=== PATIENT | male | born 1940 | race Asian ===

== ENCOUNTER 2016-07-25 12:50 | Inpatient (IN) | payer MEDICARE, OTHER ==
[~2016-07-25] VITALS: Ht 165.1 cm; Wt 50.2 kg
[~2016-07-25 12:50] MED LIST: AMIO200T44 PO; APIX5TAB PO; RANI150T7 PO
[2016-07-25] MEDS ORDERED: DILTIAZEM HCL 5 MG/ML 5 ML VIAL IVP ONE ×2 (13:30→14:30)
[2016-07-25] MEDS ORDERED: NITROGLYCERIN 2% (1 GM=INCH) PACKET TP ONE (13:30)
[2016-07-25] MEDS ORDERED: FUROSEMIDE 40 MG/4 ML VIAL IVP ONE (13:30)
[2016-07-25 13:45] LABS: BASOPHILS % (AUTO) 1.3 % (0.0-2.0); EOSINOPHILS % (AUTO) 1.3 % (1.0-6.0); HEMATOCRIT 48.9 % (41-53); HEMOGLOBIN 15.3 g/dL (13.5-17.5); LYMPHOCYTES # (AUTO) 1.7 K/uL (1.0-4.8); LYMPHOCYTES % (AUTO) 24.4 % (22.0-44.0); MEAN CORPUSCULAR HEMOGLOBIN 28.9 pg (26.0-34.0); MEAN CORPUSCULAR HGB CONC 31.3 G/dL (31.0-37.0); MEAN CORPUSCULAR VOLUME 92 fL (80-100); MONOCYTES # (AUTO) 0.5 K/uL (0.1-1.0); MONOCYTES % (AUTO) 7.4 % (2.0-9.0); NEUTROPHILS # (AUTO) 4.6 K/uL (1.8-7.7); NEUTROPHILS % (AUTO) 65.6 % (40.0-70.0); PLATELET COUNT (AUTO) 41 K/uL (150-450); RED CELL DISTRIBUTION WIDTH 15.9 % (11.5-14.5); WHITE BLOOD COUNT (AUTO) 7.1 K/uL (4.5-11.0)
[2016-07-25 13:54] LABS: ANION GAP 12 mmol/L (8-16); CALCIUM, TOTAL 8.8 mg/dL (8.8-10.5); CARBON DIOXIDE 23 mmol/L (22-29); CHLORIDE 106 mmol/L (98-107); CREATININE 1.14 mg/dL (0.60-1.30); GLOMERULAR FILTR. RATE CALC > 60 mL/min (>60); POTASSIUM 4.7 mmol/L (3.5-5.1); SODIUM SERUM 141 mmol/L (136-145); UREA NITROGEN, BLOOD 23 mg/dL (7-18)
[2016-07-25 13:58] LABS: INR 1.1 (0.9-1.1); PROTHROMBIN TIME 11.9 SEC (9.4-11.6)
[2016-07-25 14:08] LABS: B-TYPE NATRIURETIC PEPTIDE 1290 pg/mL (0-100)
[2016-07-25 14:16] LABS: ALANINE AMINOTRANSFERASE 42 U/L (12-78); ALBUMIN 3.4 g/dL (3.4-5.0); ASPARTATE AMINOTRANSFERASE 37 U/L (15-37); BILIRUBIN,TOTAL 2.3 mg/dL (0.1-1.0); CREATINE KINASE MB 3.9 ng/mL (0-5); CREATINE KINASE, TOTAL 161 U/L (39-308); TOTAL PROTEIN, SERUM 7.1 g/dL (6.4-8.2)
[2016-07-25 15:09] LABS: APPEARANCE,URINE CLEAR (CLEAR); GLUCOSE, URINE (UA) NEGATIVE (NEGATIVE); KETONES,URINE NEGATIVE (NEGATIVE); LEUKOCYTE ESTERASE ,URINE NEGATIVE (NEGATIVE); OCCULT BLOOD,URINE NEGATIVE (NEGATIVE); PROTEIN,URINE NEGATIVE (NEGATIVE)
[2016-07-25 15:12] LABS: ADD UA MICROSCOPIC NO
[2016-07-25] MEDS ORDERED: BISACODYL 10 MG RECTAL RECTAL SUPPOSITORY PR PRN (18:45)
[2016-07-25] MEDS ORDERED: MAGNESIUM HYDROXIDE SUSPENSION 30 ML UDCUP PO PRN (18:45)
[2016-07-25] MEDS ORDERED: ONDANSETRON HCL 4 MG/2 ML VIAL IVP PRN (18:45)
[2016-07-25] MEDS ORDERED: AMIODARONE HCL 150 MG in DEXTROSE 5%-WATER 97 ML IV ONE (18:50)
[2016-07-25] MEDS ORDERED: DIGOXIN 250 MCG/ML 2 ML AMP IVP ONE (19:00)
[2016-07-25] MEDS ORDERED: AMIODARONE HCL 360 MG in DEXTROSE 5%-WATER 242.8 ML IV ONE (19:00)
[2016-07-25 19:25] LABS: THYROID STIMULATING HORMONE 2.58 uIU/mL (0.36-3.74)
[2016-07-25] MEDS: DOCUSATE SODIUM 100 MG CAPSULE PO SCH (21:20)
[2016-07-26] MEDS ORDERED: AMIODARONE HCL 540 MG in DEXTROSE 5%-WATER 239.2 ML IV ONE (01:00)
[2016-07-26 01:07] VITALS: BP 118/93
[2016-07-26 05:05] VITALS: BP 122/92
[2016-07-26 07:39] VITALS: BP 143/99
[2016-07-26] MEDS: DOCUSATE SODIUM 100 MG CAPSULE PO SCH ×2 (08:47→21:17)
[2016-07-26] MEDS: PANTOPRAZOLE SODIUM 40 MG DR TABLET PO SCH (08:47)
[2016-07-26 11:27] VITALS: BP 113/80
[2016-07-26 17:52] VITALS: BP 122/74
[2016-07-26] MEDS ORDERED: AMIODARONE HCL 750 MG in DEXTROSE 5%-WATER 485 ML IV SCH (19:00)
[2016-07-26 19:55] VITALS: BP 118/90
[2016-07-26] MEDS: AMIODARONE HCL 200 MG TABLET PO SCH ×2 (21:16→21:18)
[2016-07-26] MEDS: ZOLPIDEM TARTRATE 5 MG TABLET PO PRN (21:16)
[2016-07-26] MEDS: APIXABAN 5 MG TABLET PO SCH ×2 (21:16→21:18)
[2016-07-26] MEDS: FUROSEMIDE 20 MG/2 ML VIAL IVP SCH (21:17)
[2016-07-27 00:06] VITALS: BP 110/79
[2016-07-27 05:17] VITALS: BP 123/75
[2016-07-27 07:39] VITALS: BP 132/83
[2016-07-27] MEDS: AMIODARONE HCL 200 MG TABLET PO SCH ×3 (07:58→21:04)
[2016-07-27] MEDS: APIXABAN 5 MG TABLET PO SCH (07:59)
[2016-07-27] MEDS: DOCUSATE SODIUM 100 MG CAPSULE PO SCH ×2 (08:00→21:04)
[2016-07-27] MEDS: PANTOPRAZOLE SODIUM 40 MG DR TABLET PO SCH (08:00)
[2016-07-27] MEDS ORDERED: DENTURE ADHESIVE 68 GM CREAM DT PRN (08:00)
[2016-07-27] MEDS: FUROSEMIDE 20 MG/2 ML VIAL IVP SCH ×2 (08:07→21:04)
[2016-07-27 11:30] VITALS: BP 116/73
[2016-07-27] MEDS: DIGOXIN 125 MCG TABLET PO SCH (13:00)
[2016-07-27] MEDS ORDERED: DIGOXIN 250 MCG/ML 2 ML AMP IVP ONE (13:45)
[2016-07-27 15:22] VITALS: BP 127/81
[2016-07-27 19:52] VITALS: BP 103/64
[2016-07-27] MEDS: ZOLPIDEM TARTRATE 5 MG TABLET PO PRN (21:04)
[2016-07-28] VITALS (17 sets, daily range): BP systolic 96–164; BP diastolic 49–100
[2016-07-28 06:43] LABS: ALBUMIN 2.5 g/dL (3.4-5.0); BILIRUBIN,TOTAL 1.8 mg/dL (0.1-1.0); CALCIUM, TOTAL 7.6 mg/dL (8.8-10.5); CREATININE 1.28 mg/dL (0.60-1.30); DIGOXIN 0.68 ng/mL (0.90-2.00); TOTAL PROTEIN, SERUM 5.8 g/dL (6.4-8.2)
[2016-07-28 06:58] LABS: BASOPHILS # (AUTO) 0.03 K/uL (0.00-0.20); BASOPHILS % (AUTO) 0.3 % (0.0-2.0); EOSINOPHILS # (AUTO) 0.21 K/uL (0.00-0.70); EOSINOPHILS % (AUTO) 1.89 % (1.0-6.0); HEMATOCRIT 49.3 % (41-53); HEMOGLOBIN 15.8 g/dL (13.5-17.5); LYMPHOCYTES # (AUTO) 1.3 K/uL (1.0-4.8); LYMPHOCYTES % (AUTO) 12.1 % (22.0-44.0); MEAN CORPUSCULAR VOLUME 90 fL (80-100); MONOCYTES # (AUTO) 1.1 K/uL (0.1-1.0); MONOCYTES % (AUTO) 10.3 % (2.0-9.0); NEUTROPHILS # (AUTO) 8.3 K/uL (1.8-7.7); NEUTROPHILS % (AUTO) 75.5 % (40.0-70.0); PLATELET COUNT (AUTO) 224 K/uL (150-450); RED BLOOD CELL COUNT(AUTO) 5.45 MIL/uL (4.50-5.90); RED CELL DISTRIBUTION WIDTH 15.6 % (11.5-14.5)
[2016-07-28] MEDS: AMIODARONE HCL 200 MG TABLET PO SCH ×3 (08:28→21:30)
[2016-07-28] MEDS: DOCUSATE SODIUM 100 MG CAPSULE PO SCH ×2 (08:28→21:29)
[2016-07-28] MEDS: DIGOXIN 125 MCG TABLET PO SCH (08:28)
[2016-07-28] MEDS: FUROSEMIDE 20 MG/2 ML VIAL IVP SCH ×2 (08:28→21:29)
[2016-07-28] MEDS: PANTOPRAZOLE SODIUM 40 MG DR TABLET PO SCH (08:29)
[2016-07-28] MEDS ORDERED: LIDOCAINE HCL/PF 1% 30 ML VIAL ONE (12:49)
[2016-07-28] MEDS ORDERED: HEPARIN SODIUM 1000 UNITS/NS 1,000 ML ONE (12:50)
[2016-07-28] MEDS ORDERED: IOHEXOL 300 MG/ML 150 ML VIAL ONE (12:50)
[2016-07-28] MEDS ORDERED: SODIUM BICARBONATE 50 MEQ/50 ML VIAL ONE (12:50)
[2016-07-28] MEDS ORDERED: VERAPAMIL HCL 2.5 MG/ML 2 ML VIAL ONE (13:23)
[2016-07-28] MEDS ORDERED: NITROGLYCERIN 50 MG/D5% WATER 250 ML ONE (13:23)
[2016-07-28] MEDS ORDERED: HEPARIN SODIUM 2,000 UNITS in HEPARIN SODIUM 1000 UNITS/NS 1,000 ML IARTER ONE (13:38)
[2016-07-28] MEDS ORDERED: SODIUM CHLORIDE 0.9% 500 ML IV ONE (13:38)
[2016-07-28] MEDS ORDERED: VERAPAMIL HCL 2.5 MG/ML 2 ML VIAL IARTER ONE (13:45)
[2016-07-28] MEDS ORDERED: HEPARIN SODIUM,PORCINE 5,000 UNITS/ML VIAL IVP ONE (13:45)
[2016-07-28] MEDS ORDERED: LIDOCAINE 1% 30 ML/SOD BICARB 8.4% 4 ML SQ ONE (13:45)
[2016-07-28] MEDS ORDERED: NITROGLYCERIN/D5W 50 MG/250 ML IV BOTTLE IARTER ONE (13:45)
[2016-07-28] MEDS ORDERED: IOHEXOL 300 MG/ML 150 ML VIAL IARTER ONE (13:45)
[2016-07-28] MEDS ORDERED: IOHEXOL 300 MG/ML 50 ML VIAL ONE ×2 (13:57→14:01)
[2016-07-28] MEDS ORDERED: IOHEXOL 300 MG/ML 100 ML VIAL ONE ×2 (13:57→14:35)
[2016-07-28] MEDS ORDERED: ASPIRIN 81 MG CHEWABLE TABLET ONE (14:14)
[2016-07-28] MEDS ORDERED: TICAGRELOR 90 MG TABLET ONE (14:14)
[2016-07-28] MEDS ORDERED: TICAGRELOR 90 MG TABLET PO ONE (14:30)
[2016-07-28] MEDS ORDERED: IOHEXOL 300 MG/ML 50 ML VIAL IARTER ONE (14:30)
[2016-07-28] MEDS ORDERED: ASPIRIN 81 MG CHEWABLE TABLET PO ONE (14:30)
[2016-07-28] MEDS ORDERED: IOHEXOL 300 MG/ML 100 ML VIAL IARTER ONE (14:30)
[2016-07-28] MEDS ORDERED: 0.9% SODIUM CHLORIDE 10 ML SYRINGE IVP PRN (15:15)
[2016-07-28 19:09] LABS: CREATINE KINASE, TOTAL 72 U/L (39-308)
[2016-07-28] MEDS: CARVEDILOL 3.125 MG TABLET PO SCH (21:29)
[2016-07-28] MEDS: ATORVASTATIN CALCIUM 40 MG TABLET PO SCH (22:51)
[2016-07-28] MEDS: TICAGRELOR 90 MG TABLET PO SCH (22:51)
[2016-07-28] MEDS: LISINOPRIL 5 MG TABLET PO SCH (22:51)
[2016-07-29] VITALS (8 sets, daily range): BP systolic 86–132; BP diastolic 50–87
[2016-07-29 06:19] LABS: ANION GAP 7 mmol/L (8-16); CALCIUM, TOTAL 7.8 mg/dL (8.8-10.5); CARBON DIOXIDE 30 mmol/L (22-29); CHLORIDE 100 mmol/L (98-107); CREATINE KINASE MB 1.3 ng/mL (0-5); CREATINE KINASE, TOTAL 132 U/L (39-308); GLOMERULAR FILTR. RATE CALC 54 mL/min (>60); POTASSIUM 5.2 mmol/L (3.5-5.1); SODIUM SERUM 137 mmol/L (136-145); UREA NITROGEN, BLOOD 20 mg/dL (7-18)
[2016-07-29 06:51] LABS: BASOPHILS % (AUTO) 0.9 % (0.0-2.0); EOSINOPHILS # (AUTO) 0.19 K/uL (0.00-0.70); EOSINOPHILS % (AUTO) 1.62 % (1.0-6.0); HEMATOCRIT 53.8 % (41-53); HEMOGLOBIN 17.1 g/dL (13.5-17.5); LYMPHOCYTES # (AUTO) 1.2 K/uL (1.0-4.8); LYMPHOCYTES % (AUTO) 9.8 % (22.0-44.0); MEAN CORPUSCULAR HEMOGLOBIN 28.8 pg (26.0-34.0); MEAN CORPUSCULAR HGB CONC 31.8 G/dL (31.0-37.0); MEAN CORPUSCULAR VOLUME 90 fL (80-100); MONOCYTES # (AUTO) 1.2 K/uL (0.1-1.0); MONOCYTES % (AUTO) 10.1 % (2.0-9.0); NEUTROPHILS # (AUTO) 9.2 K/uL (1.8-7.7); NEUTROPHILS % (AUTO) 77.6 % (40.0-70.0); PLATELET COUNT (AUTO) 251 K/uL (150-450); RED BLOOD CELL COUNT(AUTO) 5.95 MIL/uL (4.50-5.90); RED CELL DISTRIBUTION WIDTH 15.5 % (11.5-14.5); WHITE BLOOD COUNT (AUTO) 11.8 K/uL (4.5-11.0)
[2016-07-29] MEDS: FUROSEMIDE 20 MG/2 ML VIAL IVP SCH ×2 (08:23→20:49)
[2016-07-29] MEDS: CARVEDILOL 3.125 MG TABLET PO SCH ×2 (08:23→20:48)
[2016-07-29] MEDS: PANTOPRAZOLE SODIUM 40 MG DR TABLET PO SCH (08:23)
[2016-07-29] MEDS: DOCUSATE SODIUM 100 MG CAPSULE PO SCH ×2 (08:24→20:48)
[2016-07-29] MEDS: TICAGRELOR 90 MG TABLET PO SCH ×2 (08:24→20:49)
[2016-07-29] MEDS: ASPIRIN 81 MG CHEWABLE TABLET PO SCH (08:24)
[2016-07-29] MEDS: AMIODARONE HCL 200 MG TABLET PO SCH ×3 (08:24→20:48)
[2016-07-29] MEDS: LISINOPRIL 5 MG TABLET PO SCH (20:48)
[2016-07-29] MEDS: ATORVASTATIN CALCIUM 40 MG TABLET PO SCH (20:50)
[2016-07-30] VITALS (7 sets, daily range): BP systolic 89–133; BP diastolic 40–84
[2016-07-30 05:47] LABS: ALBUMIN 2.6 g/dL (3.4-5.0); BILIRUBIN,TOTAL 1.5 mg/dL (0.1-1.0); CALCIUM, TOTAL 7.7 mg/dL (8.8-10.5); MAGNESIUM 2.2 mg/dL (1.80-2.40); POTASSIUM 3.9 mmol/L (3.5-5.1)
[2016-07-30 05:57] LABS: CREATININE 1.33 mg/dL (0.60-1.30)
[2016-07-30 06:14] LABS: BASOPHILS # (AUTO) 0.05 K/uL (0.00-0.20); BASOPHILS % (AUTO) 0.5 % (0.0-2.0); EOSINOPHILS # (AUTO) 0.14 K/uL (0.00-0.70); EOSINOPHILS % (AUTO) 1.34 % (1.0-6.0); HEMATOCRIT 53.2 % (41-53); HEMOGLOBIN 16.9 g/dL (13.5-17.5); LYMPHOCYTES # (AUTO) 1.2 K/uL (1.0-4.8); LYMPHOCYTES % (AUTO) 10.7 % (22.0-44.0); MEAN CORPUSCULAR HGB CONC 31.8 G/dL (31.0-37.0); MEAN CORPUSCULAR VOLUME 91 fL (80-100); MONOCYTES % (AUTO) 9.1 % (2.0-9.0); NEUTROPHILS # (AUTO) 8.4 K/uL (1.8-7.7); NEUTROPHILS % (AUTO) 78.4 % (40.0-70.0); PLATELET COUNT (AUTO) 259 K/uL (150-450); RED BLOOD CELL COUNT(AUTO) 5.84 MIL/uL (4.50-5.90); RED CELL DISTRIBUTION WIDTH 15.8 % (11.5-14.5); WHITE BLOOD COUNT (AUTO) 10.7 K/uL (4.5-11.0)
[2016-07-30] MEDS: DOCUSATE SODIUM 100 MG CAPSULE PO SCH ×2 (08:23→20:34)
[2016-07-30] MEDS: ASPIRIN 81 MG CHEWABLE TABLET PO SCH (08:23)
[2016-07-30] MEDS: PANTOPRAZOLE SODIUM 40 MG DR TABLET PO SCH (08:23)
[2016-07-30] MEDS: CARVEDILOL 3.125 MG TABLET PO SCH ×2 (08:23→21:00)
[2016-07-30] MEDS: FUROSEMIDE 20 MG/2 ML VIAL IVP SCH ×2 (08:24→20:34)
[2016-07-30] MEDS: AMIODARONE HCL 200 MG TABLET PO SCH ×2 (08:24→21:00)
[2016-07-30] MEDS: TICAGRELOR 90 MG TABLET PO SCH ×2 (08:24→20:34)
[2016-07-30] MEDS: ATORVASTATIN CALCIUM 40 MG TABLET PO SCH (20:33)
[2016-07-30] MEDS: LISINOPRIL 5 MG TABLET PO SCH (21:00)
[2016-07-31 04:51] VITALS: BP 120/60
[2016-07-31 07:36] VITALS: BP 131/69
[2016-07-31] MEDS: FUROSEMIDE 20 MG/2 ML VIAL IVP SCH ×2 (08:13→21:08)
[2016-07-31] MEDS: PANTOPRAZOLE SODIUM 40 MG DR TABLET PO SCH (08:14)
[2016-07-31] MEDS: TICAGRELOR 90 MG TABLET PO SCH ×2 (08:14→21:08)
[2016-07-31] MEDS: DOCUSATE SODIUM 100 MG CAPSULE PO SCH ×2 (08:14→21:08)
[2016-07-31] MEDS: ASPIRIN 81 MG CHEWABLE TABLET PO SCH (08:14)
[2016-07-31] MEDS: CARVEDILOL 3.125 MG TABLET PO SCH ×2 (08:15→21:00)
[2016-07-31] MEDS: AMIODARONE HCL 200 MG TABLET PO SCH ×3 (08:15→21:08)
[2016-07-31 08:16] LABS: BASOPHILS % (AUTO) 0.5 % (0.0-2.0); EOSINOPHILS % (AUTO) 1.5 % (1.0-6.0); HEMATOCRIT 54.6 % (41-53); HEMOGLOBIN 17.2 g/dL (13.5-17.5); MEAN CORPUSCULAR HEMOGLOBIN 28.7 pg (26.0-34.0); MEAN CORPUSCULAR HGB CONC 31.4 G/dL (31.0-37.0); MEAN CORPUSCULAR VOLUME 91 fL (80-100); MONOCYTES # (AUTO) 0.8 K/uL (0.1-1.0); MONOCYTES % (AUTO) 9.6 % (2.0-9.0); NEUTROPHILS # (AUTO) 6.5 K/uL (1.8-7.7); NEUTROPHILS % (AUTO) 76.4 % (40.0-70.0); PLATELET COUNT (AUTO) 272 K/uL (150-450); RED BLOOD CELL COUNT(AUTO) 5.99 MIL/uL (4.50-5.90); RED CELL DISTRIBUTION WIDTH 15.2 % (11.5-14.5); WHITE BLOOD COUNT (AUTO) 8.6 K/uL (4.5-11.0)
[2016-07-31 08:36] LABS: ALANINE AMINOTRANSFERASE 29 U/L (12-78); ALBUMIN 2.8 g/dL (3.4-5.0); ANION GAP 7 mmol/L (8-16); ASPARTATE AMINOTRANSFERASE 24 U/L (15-37); BILIRUBIN,TOTAL 1.3 mg/dL (0.1-1.0); CALCIUM, TOTAL 7.8 mg/dL (8.8-10.5); CARBON DIOXIDE 32 mmol/L (22-29); CHLORIDE 100 mmol/L (98-107); CREATININE 1.16 mg/dL (0.60-1.30); GLOMERULAR FILTR. RATE CALC > 60 mL/min (>60); POTASSIUM 3.6 mmol/L (3.5-5.1); SODIUM SERUM 139 mmol/L (136-145); TOTAL PROTEIN, SERUM 6.7 g/dL (6.4-8.2); UREA NITROGEN, BLOOD 26 mg/dL (7-18)
[2016-07-31 11:15] VITALS: BP 159/61
[2016-07-31 15:35] VITALS: BP 128/63
[2016-07-31 19:54] VITALS: BP 149/71
[2016-07-31] MEDS: ATORVASTATIN CALCIUM 40 MG TABLET PO SCH (21:08)
[2016-07-31] MEDS: LISINOPRIL 5 MG TABLET PO SCH (21:08)
[2016-08-01 00:15] VITALS: BP 110/43
[2016-08-01 04:26] VITALS: BP 107/57
[2016-08-01 07:31] VITALS: BP 143/71
[2016-08-01] MEDS: FUROSEMIDE 20 MG/2 ML VIAL IVP SCH (08:25)
[2016-08-01] MEDS: AMIODARONE HCL 200 MG TABLET PO SCH (08:26)
[2016-08-01] MEDS: CARVEDILOL 3.125 MG TABLET PO SCH (08:26)
[2016-08-01] MEDS: PANTOPRAZOLE SODIUM 40 MG DR TABLET PO SCH (08:26)
[2016-08-01] MEDS: DOCUSATE SODIUM 100 MG CAPSULE PO SCH (08:26)
[2016-08-01] MEDS: TICAGRELOR 90 MG TABLET PO SCH (08:26)
[2016-08-01] MEDS ORDERED: APIXABAN 2.5 MG TABLET PO SCH (09:00)
[2016-08-01 11:40] VITALS: BP 118/63
[2016-08-01] MEDS ORDERED: AMIO200T44 PO (14:41)
[2016-08-01] MEDS ORDERED: SLOWK8 PO (14:44)
[2016-08-01] MEDS ORDERED: APIX2.5T PO (14:46)
[2016-08-01] MEDS ORDERED: CARV3 PO (14:46)
[2016-08-01] MEDS ORDERED: TICA90TA PO (14:46)
[2016-08-01] MEDS ORDERED: ATOR40TA28 PO (14:46)
[2016-08-01] MEDS ORDERED: LISI-660 PO (14:47)
[2016-08-01] MEDS ORDERED: FURO20 PO (14:47)
[2016-08-01] MEDS ORDERED: DSS100 PO (14:47)
[2016-08-01 15:04] VITALS: BP 149/69
== END 2016-08-01 17:25 | disposition home or self-care (01) | DRG 246 ==
LOC: EMS 12:51 → INTOOBSV 07-26 00:05 → OBSVTOIN 07-26 00:05 → 5S 07-26 00:05 → ICU 07-28 15:12 → 5S 07-30 21:20
PROVIDERS: ADMIT Hospitalist; ATTEND Hospitalist
PROC: 4A023N7 Measurement of Cardiac Sampling and Pressure, Left Heart, Percutaneous Approach (ICD-10-PCS; principal; 2016-07-28)
PROC: 027034Z Dilation of Coronary Artery, One Artery with Drug-eluting Intraluminal Device, Percutaneous Approach (ICD-10-PCS; 2016-07-28)
PROC: B211YZZ Fluoroscopy of Multiple Coronary Arteries using Other Contrast (ICD-10-PCS; 2016-07-28)
PROC: B215YZZ Fluoroscopy of Left Heart using Other Contrast (ICD-10-PCS; 2016-07-28)
DX: I25.10 Atherosclerotic heart disease of native coronary artery without angina pectoris (principal); I50.43 Acute on chronic combined systolic (congestive) and diastolic (congestive) heart failure; E78.5 Hyperlipidemia, unspecified; E87.5 Hyperkalemia; J44.9 Chronic obstructive pulmonary disease, unspecified; K21.9 Gastro-esophageal reflux disease without esophagitis; I11.0 Hypertensive heart disease with heart failure; D69.6 Thrombocytopenia, unspecified; I25.5 Ischemic cardiomyopathy; I48.0 Paroxysmal atrial fibrillation; I08.3 Combined rheumatic disorders of mitral, aortic and tricuspid valves; Z79.01 Long term (current) use of anticoagulants; Z87.891 Personal history of nicotine dependence; Z95.5 Presence of coronary angioplasty implant and graft
CPT/HCPCS: 83735; 84439; 84443; 87081; 92920; 92928; 93005; 93306; 96365; 96366; 96375; 96376; 99291; J0282; J1160; J1644; J1940; J3490; J7060; Q9967

== ENCOUNTER → 2016-10-24 | Outpatient (CLI) | payer MEDICARE ==
[~2016-10-24] MED LIST changes: +APIX2.5T PO; -APIX5TAB PO; +ATOR40TA28 PO; +CARV3 PO; +DSS100 PO; +FURO20 PO; +LISI-660 PO; -RANI150T7 PO; +SLOWK8 PO; +TICA90TA PO
== END | disposition home or self-care (01) ==
LOC: RADPV 08:02
PROVIDERS: ATTEND Internal Medicine Cardiovascular Disease
DX: I50.20 Unspecified systolic (congestive) heart failure (principal); I08.3 Combined rheumatic disorders of mitral, aortic and tricuspid valves
CPT/HCPCS: 93306

== ENCOUNTER 2017-05-18 09:59 | Inpatient (IN) | payer MEDICARE ==
[~2017-05-18] VITALS: Ht 162.6 cm; Wt 54.0 kg
[2017-05-18] VITALS (10 sets, daily range): BP systolic 109–150; BP diastolic 44–95
[2017-05-18] MEDS ORDERED: ASPIRIN 81 MG CHEWABLE TABLET PO ONE (10:15)
[2017-05-18] MEDS ORDERED: DILTIAZEM HCL 5 MG/ML 5 ML VIAL IVP ONE ×2 (10:30→23:30)
[2017-05-18 11:08] LABS: BASOPHILS # (AUTO) 0.05 K/uL (0.00-0.20); BASOPHILS % (AUTO) 0.6 % (0.0-2.0); EOSINOPHILS % (AUTO) 0.01 % (1.0-6.0); HEMATOCRIT 44.5 % (41-53); HEMOGLOBIN 14.5 g/dL (13.5-17.5); LYMPHOCYTES # (AUTO) 0.5 K/uL (1.0-4.8); LYMPHOCYTES % (AUTO) 6.3 % (22.0-44.0); MEAN CORPUSCULAR HEMOGLOBIN 29.9 pg (26.0-34.0); MEAN CORPUSCULAR HGB CONC 32.7 G/dL (31.0-37.0); MEAN CORPUSCULAR VOLUME 92 fL (80-100); MONOCYTES # (AUTO) 0.7 K/uL (0.1-1.0); NEUTROPHILS # (AUTO) 6.9 K/uL (1.8-7.7); PLATELET COUNT (AUTO) 194 K/uL (150-450); RED BLOOD CELL COUNT(AUTO) 4.86 MIL/uL (4.50-5.90); RED CELL DISTRIBUTION WIDTH 13.8 % (11.5-14.5)
[2017-05-18 11:18] LABS: ANION GAP 14 mmol/L (8-16); CALCIUM, TOTAL 8.1 mg/dL (8.8-10.5); CARBON DIOXIDE 21 mmol/L (22-29); CHLORIDE 101 mmol/L (98-107); CREATININE 1.49 mg/dL (0.60-1.30); GLOMERULAR FILTR. RATE CALC 46 mL/min (>60); GLUCOSE,RANDOM 199 mg/dL (70-110); POTASSIUM 3.8 mmol/L (3.5-5.1); SODIUM SERUM 136 mmol/L (136-145); UREA NITROGEN, BLOOD 23 mg/dL (7-18)
[2017-05-18 11:36] LABS: INR 1.2 (0.9-1.1); PROTHROMBIN TIME 12.4 SEC (9.4-11.6)
[2017-05-18 11:44] LABS: ALANINE AMINOTRANSFERASE 90 U/L (12-78); ALBUMIN 3.1 g/dL (3.4-5.0); ASPARTATE AMINOTRANSFERASE 117 U/L (15-37); BILIRUBIN,TOTAL 1.5 mg/dL (0.1-1.0); CREATINE KINASE MB 0.9 ng/mL (0-5); CREATINE KINASE, TOTAL 205 U/L (39-308); TOTAL PROTEIN, SERUM 6.6 g/dL (6.4-8.2)
[2017-05-18 11:50] LABS: B-TYPE NATRIURETIC PEPTIDE 805 pg/mL (0-100)
[2017-05-18 12:00] LABS: ALKALINE PHOSPHATASE 86 U/L (46-116)
[2017-05-18] MEDS ORDERED: ACETAMINOPHEN 325 MG TABLET PO PRN ×2 (12:30→13:15)
[2017-05-18] MEDS ORDERED: 0.9% SODIUM CHLORIDE 10 ML SYRINGE IVP PRN (12:30)
[2017-05-18] MEDS ORDERED: ONDANSETRON HCL 4 MG/2 ML VIAL IVP PRN (12:30)
[2017-05-18] MEDS ORDERED: DIGOXIN 250 MCG/ML 2 ML AMP IVP ONE (12:30)
[2017-05-18] MEDS ORDERED: AMIODARONE HCL 200 MG TABLET PO ONE (12:30)
[2017-05-18] MEDS ORDERED: OxyCODONE HCL/ACETAMINOPHEN 5-325 MG TABLET PO PRN (13:15)
[2017-05-18] MEDS ORDERED: BISACODYL 10 MG RECTAL RECTAL SUPPOSITORY PR PRN (13:15)
[2017-05-18] MEDS ORDERED: ALBUTEROL SULFATE 2.5 MG/0.5 ML NEB SOLUTION NEB PRN (13:15)
[2017-05-18] MEDS ORDERED: AMIODARONE HCL 150 MG in DEXTROSE 5%-WATER 97 ML IV ONE (13:30)
[2017-05-18] MEDS ORDERED: AMIODARONE HCL 360 MG in DEXTROSE 5%-WATER 242.8 ML IV ONE (13:30)
[2017-05-18] MEDS: FUROSEMIDE 20 MG/2 ML VIAL IVP SCH (15:02)
[2017-05-18] MEDS: APIXABAN 2.5 MG TABLET PO SCH ×2 (15:03→22:15)
[2017-05-18] MEDS ORDERED: INFLUENZA VIRUS VACCINE QVS 2017-18 (3YR+)/PF 60 MCG/0.5 ML SYRINGE IM ONE (17:15)
[2017-05-18] MEDS ORDERED: AMIODARONE HCL 540 MG in DEXTROSE 5%-WATER 239.2 ML IV ONE (20:00)
[2017-05-18] MEDS ORDERED: AMIODARONE HCL 200 MG TABLET PO SCH (21:00)
[2017-05-18] MEDS: TICAGRELOR 90 MG TABLET PO SCH (22:15)
[2017-05-18] MEDS: DOCUSATE SODIUM 100 MG CAPSULE PO SCH (22:15)
[2017-05-18] MEDS: ATORVASTATIN CALCIUM 20 MG TABLET PO SCH (22:15)
[2017-05-18] MEDS ORDERED: DILTIAZEM HCL 125 MG in DEXTROSE 5%-WATER 100 ML IV PRN (23:15)
[2017-05-19] VITALS (11 sets, daily range): BP systolic 105–129; BP diastolic 50–69
[2017-05-19] MEDS: TICAGRELOR 90 MG TABLET PO SCH ×2 (09:48→20:40)
[2017-05-19] MEDS: APIXABAN 2.5 MG TABLET PO SCH ×2 (09:49→20:40)
[2017-05-19] MEDS: PANTOPRAZOLE SODIUM 40 MG DR TABLET PO SCH (09:49)
[2017-05-19] MEDS: ASPIRIN 81 MG CHEWABLE TABLET PO SCH (09:50)
[2017-05-19] MEDS: DOCUSATE SODIUM 100 MG CAPSULE PO SCH ×2 (09:51→21:00)
[2017-05-19] MEDS: FUROSEMIDE 20 MG/2 ML VIAL IVP SCH (09:51)
[2017-05-19] MEDS ORDERED: AMIODARONE HCL 750 MG in DEXTROSE 5%-WATER 485 ML IV SCH (13:30)
[2017-05-19 17:50] LABS: BASOPHILS % (AUTO) 0.4 % (0.0-2.0); EOSINOPHILS % (AUTO) 0.2 % (1.0-6.0); HEMATOCRIT 53.7 % (41-53); HEMOGLOBIN 17.7 g/dL (13.5-17.5); LYMPHOCYTES # (AUTO) 0.9 K/uL (1.0-4.8); LYMPHOCYTES % (AUTO) 8.7 % (22.0-44.0); MEAN CORPUSCULAR HEMOGLOBIN 30.1 pg (26.0-34.0); MEAN CORPUSCULAR HGB CONC 32.9 G/dL (31.0-37.0); MEAN CORPUSCULAR VOLUME 92 fL (80-100); MONOCYTES % (AUTO) 9.5 % (2.0-9.0); NEUTROPHILS # (AUTO) 8.3 K/uL (1.8-7.7); NEUTROPHILS % (AUTO) 81.2 % (40.0-70.0); PLATELET COUNT (AUTO) 214 K/uL (150-450); RED BLOOD CELL COUNT(AUTO) 5.86 MIL/uL (4.50-5.90); RED CELL DISTRIBUTION WIDTH 13.7 % (11.5-14.5)
[2017-05-19 18:06] LABS: B-TYPE NATRIURETIC PEPTIDE 423 pg/mL (0-100)
[2017-05-19 18:13] LABS: PLATELET MORPHOLOGY COMMENT GIANT PLTS PRESENT
[2017-05-19 18:22] LABS: ALANINE AMINOTRANSFERASE 84 U/L (12-78); ALBUMIN 2.7 g/dL (3.4-5.0); ALKALINE PHOSPHATASE 72 U/L (46-116); ASPARTATE AMINOTRANSFERASE 88 U/L (15-37); BILIRUBIN,TOTAL 1.9 mg/dL (0.1-1.0); CALCIUM, TOTAL 7.9 mg/dL (8.8-10.5); CARBON DIOXIDE 29 mmol/L (22-29); CREATINE KINASE MB 0.8 ng/mL (0-5); CREATINE KINASE, TOTAL 114 U/L (39-308); CREATININE 1.42 mg/dL (0.60-1.30); GLOMERULAR FILTR. RATE CALC 48 mL/min (>60); GLUCOSE,RANDOM 151 mg/dL (70-110); TOTAL PROTEIN, SERUM 6.4 g/dL (6.4-8.2); UREA NITROGEN, BLOOD 23 mg/dL (7-18)
[2017-05-19 18:55] LABS: ANION GAP 7 mmol/L (8-16); CHLORIDE 96 mmol/L (98-107); POTASSIUM 3.4 mmol/L (3.5-5.1); SODIUM SERUM 132 mmol/L (136-145)
[2017-05-19] MEDS: ATORVASTATIN CALCIUM 20 MG TABLET PO SCH (20:40)
[2017-05-20] VITALS (12 sets, daily range): BP systolic 99–148; BP diastolic 55–70
[2017-05-20] MEDS: CefTRIAXone 1 GM/DEXTROSE 50 ML IV SCH (09:27)
[2017-05-20] MEDS: DOCUSATE SODIUM 100 MG CAPSULE PO SCH ×2 (09:46→21:54)
[2017-05-20] MEDS: FUROSEMIDE 20 MG/2 ML VIAL IVP SCH (09:46)
[2017-05-20] MEDS: TICAGRELOR 90 MG TABLET PO SCH ×2 (09:47→21:54)
[2017-05-20] MEDS: APIXABAN 2.5 MG TABLET PO SCH ×2 (09:47→21:54)
[2017-05-20] MEDS: ASPIRIN 81 MG CHEWABLE TABLET PO SCH (09:48)
[2017-05-20] MEDS: PANTOPRAZOLE SODIUM 40 MG DR TABLET PO SCH (09:48)
[2017-05-20 10:29] LABS: BASOPHILS # (AUTO) 0.02 K/uL (0.00-0.20); BASOPHILS % (AUTO) 0.2 % (0.0-2.0); EOSINOPHILS % (AUTO) 0.01 % (1.0-6.0); HEMATOCRIT 51.6 % (41-53); HEMOGLOBIN 16.9 g/dL (13.5-17.5); LYMPHOCYTES # (AUTO) 0.6 K/uL (1.0-4.8); MEAN CORPUSCULAR HEMOGLOBIN 29.5 pg (26.0-34.0); MEAN CORPUSCULAR HGB CONC 32.7 G/dL (31.0-37.0); MEAN CORPUSCULAR VOLUME 90 fL (80-100); MONOCYTES # (AUTO) 0.8 K/uL (0.1-1.0); MONOCYTES % (AUTO) 9.9 % (2.0-9.0); NEUTROPHILS % (AUTO) 82.9 % (40.0-70.0); PLATELET COUNT (AUTO) 221 K/uL (150-450); RED BLOOD CELL COUNT(AUTO) 5.72 MIL/uL (4.50-5.90); RED CELL DISTRIBUTION WIDTH 13.6 % (11.5-14.5)
[2017-05-20] MEDS: ATORVASTATIN CALCIUM 20 MG TABLET PO SCH (21:55)
[2017-05-21] VITALS (7 sets, daily range): BP systolic 99–143; BP diastolic 50–91
[2017-05-21 06:23] LABS: BASOPHILS % (AUTO) 0.3 % (0.0-2.0); EOSINOPHILS % (AUTO) 0.1 % (1.0-6.0); HEMATOCRIT 52.4 % (41-53); HEMOGLOBIN 17.1 g/dL (13.5-17.5); LYMPHOCYTES # (AUTO) 0.9 K/uL (1.0-4.8); LYMPHOCYTES % (AUTO) 10.9 % (22.0-44.0); MEAN CORPUSCULAR HGB CONC 32.6 G/dL (31.0-37.0); MEAN CORPUSCULAR VOLUME 92 fL (80-100); MONOCYTES # (AUTO) 1.2 K/uL (0.1-1.0); MONOCYTES % (AUTO) 13.9 % (2.0-9.0); NEUTROPHILS # (AUTO) 6.2 K/uL (1.8-7.7); NEUTROPHILS % (AUTO) 74.8 % (40.0-70.0); PLATELET COUNT (AUTO) 216 K/uL (150-450); RED BLOOD CELL COUNT(AUTO) 5.69 MIL/uL (4.50-5.90); RED CELL DISTRIBUTION WIDTH 14.2 % (11.5-14.5)
[2017-05-21 06:36] LABS: CALCIUM, TOTAL 8.1 mg/dL (8.8-10.5); CREATININE 1.24 mg/dL (0.60-1.30); POTASSIUM 3.1 mmol/L (3.5-5.1)
[2017-05-21 06:47] LABS: PLATELET MORPHOLOGY COMMENT GIANT PLTS PRESENT
[2017-05-21] MEDS: CefTRIAXone 1 GM/DEXTROSE 50 ML IV SCH (10:32)
[2017-05-21] MEDS: FUROSEMIDE 20 MG/2 ML VIAL IVP SCH (10:33)
[2017-05-21] MEDS: APIXABAN 2.5 MG TABLET PO SCH ×2 (10:33→22:25)
[2017-05-21] MEDS: CARVEDILOL 6.25 MG TABLET PO SCH ×2 (10:34→22:25)
[2017-05-21] MEDS: PANTOPRAZOLE SODIUM 40 MG DR TABLET PO SCH (10:34)
[2017-05-21] MEDS: TICAGRELOR 90 MG TABLET PO SCH ×2 (10:34→22:25)
[2017-05-21] MEDS: DOCUSATE SODIUM 100 MG CAPSULE PO SCH ×2 (10:34→22:25)
[2017-05-21 10:35] LABS: ERYTHROCYTE SEDIMENTATION RATE 5 MM/HR (0-15)
[2017-05-21] MEDS: ASPIRIN 81 MG CHEWABLE TABLET PO SCH (10:51)
[2017-05-21] MEDS ORDERED: POTASSIUM CHLORIDE 20 MEQ ER TABLET PO ONE (11:30)
[2017-05-21] MEDS: DIGOXIN 125 MCG TABLET PO SCH (12:19)
[2017-05-21] MEDS: ATORVASTATIN CALCIUM 20 MG TABLET PO SCH (22:25)
[2017-05-22 04:13] VITALS: BP 115/65
[2017-05-22 07:58] LABS: CALCIUM, TOTAL 8.1 mg/dL (8.8-10.5); CREATININE 1.18 mg/dL (0.60-1.30); POTASSIUM 3.6 mmol/L (3.5-5.1)
[2017-05-22] MEDS: DIGOXIN 125 MCG TABLET PO SCH (08:17)
[2017-05-22] MEDS: TICAGRELOR 90 MG TABLET PO SCH (08:17)
[2017-05-22] MEDS: APIXABAN 2.5 MG TABLET PO SCH (08:18)
[2017-05-22] MEDS: PANTOPRAZOLE SODIUM 40 MG DR TABLET PO SCH (08:18)
[2017-05-22] MEDS: CARVEDILOL 6.25 MG TABLET PO SCH (08:18)
[2017-05-22] MEDS: FUROSEMIDE 20 MG/2 ML VIAL IVP SCH (08:18)
[2017-05-22] MEDS: DOCUSATE SODIUM 100 MG CAPSULE PO SCH (08:18)
[2017-05-22] MEDS: ASPIRIN 81 MG CHEWABLE TABLET PO SCH (08:18)
[2017-05-22 08:21] VITALS: BP 126/55
[2017-05-22] MEDS: CefTRIAXone 1 GM/DEXTROSE 50 ML IV SCH (09:00)
[2017-05-22 12:05] VITALS: BP 123/65
[2017-05-22 12:13] LABS: APPEARANCE,URINE CLEAR (CLEAR); BILIRUBIN,URINE NEGATIVE (NEGATIVE); GLUCOSE, URINE (UA) 500 mg/dL (NEGATIVE); KETONES,URINE NEGATIVE (NEGATIVE); LEUKOCYTE ESTERASE ,URINE NEGATIVE (NEGATIVE); NITRATE,URINE NEGATIVE (NEGATIVE); OCCULT BLOOD,URINE NEGATIVE (NEGATIVE); PROTEIN,URINE TRACE (NEGATIVE); UROBILINOGEN,URINE 0.2 mg/dL (<=1.0)
[2017-05-22 12:32] LABS: RBC,URINE 0-2 /HPF (0-2)
[2017-05-22 12:37] LABS: BACTERIA,URINE None Seen /HPF (None Seen); SQUAMOUS EPITHELIAL CELL,UR Few /LPF (None Seen)
[2017-05-22 12:38] LABS: HYALINE CASTS, URINE 0-2 /LPF (None Seen)
[2017-05-22 12:39] LABS: MUCUS,URINE Moderate LPF (None Seen)
[2017-05-22 16:13] VITALS: BP 119/48
== END 2017-05-22 17:40 | disposition home or self-care (01) | DRG 291 ==
LOC: EMS 10:02 → ICUN 13:07 → 5S 05-21 22:05
PROVIDERS: ADMIT Internal Medicine; ATTEND Internal Medicine
DX: I11.0 Hypertensive heart disease with heart failure (principal); E43 Unspecified severe protein-calorie malnutrition; J44.0 Chronic obstructive pulmonary disease with (acute) lower respiratory infection; I50.43 Acute on chronic combined systolic (congestive) and diastolic (congestive) heart failure; I48.0 Paroxysmal atrial fibrillation; I08.3 Combined rheumatic disorders of mitral, aortic and tricuspid valves; I25.5 Ischemic cardiomyopathy; I25.10 Atherosclerotic heart disease of native coronary artery without angina pectoris; J20.9 Acute bronchitis, unspecified; E78.5 Hyperlipidemia, unspecified; R73.9 Hyperglycemia, unspecified; Z91.14 Patient's other noncompliance with medication regimen; Z79.82 Long term (current) use of aspirin; Z82.49 Family history of ischemic heart disease and other diseases of the circulatory system; Z95.5 Presence of coronary angioplasty implant and graft; Z79.899 Other long term (current) drug therapy; Z68.20 Body mass index [BMI] 20.0-20.9, adult
CPT/HCPCS: 85651; 87040; 87081; 93005; 93306; 96374; 96375; 99291; J0282; J0696; J1160; J1940; J3490; J7060

== ENCOUNTER 2022-03-15 13:13 | Inpatient (IN) | payer MEDICARE, OTHER ==
[~2022-03-15] VITALS: Ht 162.6 cm; Wt 61.7 kg
[~2022-03-15 13:13] MED LIST changes: -AMIO200T44 PO; +AMIO200T68 NG; -APIX2.5T PO; +ATOR40TA28 NG; -ATOR40TA28 PO; +DSS100 NG; -DSS100 PO; -FURO20 PO; -LISI-660 PO; -SLOWK8 PO
[2022-03-15 17:45] VITALS: BP 138/87
[2022-03-15] MEDS ORDERED: BISACODYL 10 MG RECTAL RECTAL SUPPOSITORY PR PRN (18:30)
[2022-03-15] MEDS ORDERED: ONDANSETRON HCL 4 MG TABLET PO PRN (18:30)
[2022-03-15] MEDS ORDERED: MAGNESIUM HYDROXIDE SUSPENSION 30 ML UDCUP PO PRN (18:30)
[2022-03-15] MEDS ORDERED: ACETAMINOPHEN 325 MG TABLET PO PRN (18:30)
[2022-03-15] MEDS ORDERED: SODIUM CHLORIDE 0.9% 250 ML IV ONE (19:26)
[2022-03-15] MEDS: 0.9% SODIUM CHLORIDE 10 ML SYRINGE IVP SCH (20:15)
[2022-03-15 21:00] VITALS: BP 126/71
[2022-03-15] MEDS: CARVEDILOL 25 MG TABLET PO SCH (21:04)
[2022-03-15] MEDS: SENNA 187 MG TABLET PO SCH (21:04)
[2022-03-15] MEDS: ATORVASTATIN CALCIUM 40 MG TABLET PO SCH (21:04)
[2022-03-15] MEDS: AmLODIPine BESYLATE 5 MG TABLET PO SCH (21:04)
[2022-03-15] MEDS: AMIODARONE HCL 200 MG TABLET PO SCH (21:05)
[2022-03-15] MEDS: DOCUSATE SODIUM 100 MG/10 ML LIQUID UDCUP PO SCH (21:05)
[2022-03-15] MEDS: ETHYL ALCOHOL 62% ANTISEPTIC NASAL SANITIZER 0.6 ML AMPUL NASAL SCH (21:05)
[2022-03-15] MEDS: CLINDAMYCIN 600 MG/D5% WATER 50 ML IV SCH (22:26)
[2022-03-15] MEDS: MELATONIN 3 MG TABLET PO PRN (22:33)
[2022-03-16] MEDS: CLINDAMYCIN 600 MG/D5% WATER 50 ML IV SCH ×3 (05:36→21:30)
[2022-03-16 07:09] LABS: BASOPHILS % (AUTO) 0.5 % (0.0-2.0); HEMATOCRIT 47.3 % (41-53); HEMOGLOBIN 15.4 g/dL (13.5-17.5); LYMPHOCYTES # (AUTO) 1.2 K/uL (1.0-4.8); LYMPHOCYTES % (AUTO) 10.9 % (22.0-44.0); MEAN CORPUSCULAR HGB CONC 32.6 G/dL (31.0-37.0); MEAN CORPUSCULAR VOLUME 92 fL (80-100); MONOCYTES # (AUTO) 1.2 K/uL (0.1-1.0); NEUTROPHILS # (AUTO) 8.1 K/uL (1.8-7.7); NEUTROPHILS % (AUTO) 74.6 % (40.0-70.0); PLATELET COUNT (AUTO) 262 K/uL (150-450); RED BLOOD CELL COUNT(AUTO) 5.14 MIL/uL (4.50-5.90); RED CELL DISTRIBUTION WIDTH 13.5 % (11.5-14.5)
[2022-03-16 07:30] VITALS: BP 121/66
[2022-03-16 07:33] LABS: ALBUMIN 2.4 g/dL (3.4-5.0); BILIRUBIN,TOTAL 1.1 mg/dL (0.1-1.0); CALCIUM, TOTAL 8.7 mg/dL (8.8-10.5); CREATININE 1.21 mg/dL (0.60-1.30); TOTAL PROTEIN, SERUM 6.9 g/dL (6.4-8.2)
[2022-03-16] MEDS: ETHYL ALCOHOL 62% ANTISEPTIC NASAL SANITIZER 0.6 ML AMPUL NASAL SCH ×2 (08:17→20:35)
[2022-03-16] MEDS: 0.9% SODIUM CHLORIDE 10 ML SYRINGE IVP SCH ×2 (08:17→20:39)
[2022-03-16] MEDS: PANTOPRAZOLE SODIUM 40 MG/VIAL IVP SCH (08:17)
[2022-03-16] MEDS: DOCUSATE SODIUM 100 MG/10 ML LIQUID UDCUP PO SCH ×2 (08:18→20:47)
[2022-03-16] MEDS: ASPIRIN 81 MG CHEWABLE TABLET PO SCH (08:18)
[2022-03-16] MEDS: AmLODIPine BESYLATE 5 MG TABLET PO SCH ×2 (08:18→20:36)
[2022-03-16] MEDS: AMIODARONE HCL 200 MG TABLET PO SCH ×2 (08:18→20:36)
[2022-03-16] MEDS: CARVEDILOL 25 MG TABLET PO SCH ×2 (08:18→20:36)
[2022-03-16] MEDS ORDERED: DEXTROSE 50%-WATER 25 GM/50 ML SYRINGE IVP PRN (15:00)
[2022-03-16] MEDS: INSULIN LISPRO 100 UNITS/ML SQ PRN ×2 (17:53→21:16)
[2022-03-16 18:16] LABS: GLUCOMETER DEV NAME(LOC) 2WR.2B; GLUCOSE,POINT OF CARE 262 MG/DL (70-110)
[2022-03-16 20:20] VITALS: BP_SYST 106; BP_SYST 113; BP_DIAS 57; BP_DIAS 66
[2022-03-16] MEDS: ATORVASTATIN CALCIUM 40 MG TABLET PO SCH (20:36)
[2022-03-16] MEDS: APIXABAN 2.5 MG TABLET PO SCH (20:36)
[2022-03-16] MEDS: SENNA 187 MG TABLET PO SCH (20:36)
[2022-03-16 21:51] LABS: GLUCOMETER DEV NAME(LOC) 2WR.2B; GLUCOSE,POINT OF CARE 249 MG/DL (70-110)
[2022-03-17] MEDS: CLINDAMYCIN 600 MG/D5% WATER 50 ML IV SCH ×3 (05:09→21:10)
[2022-03-17 07:01] LABS: GLUCOMETER DEV NAME(LOC) 2WR.1C; GLUCOSE,POINT OF CARE 215 MG/DL (70-110)
[2022-03-17] MEDS: INSULIN LISPRO 100 UNITS/ML SQ PRN ×3 (08:06→21:13)
[2022-03-17] MEDS: GLIMEPIRIDE 2 MG TABLET PO SCH (08:11)
[2022-03-17] MEDS: PIOGLITAZONE HCL 30 MG TABLET PO SCH (08:13)
[2022-03-17] MEDS: ETHYL ALCOHOL 62% ANTISEPTIC NASAL SANITIZER 0.6 ML AMPUL NASAL SCH ×2 (08:13→21:06)
[2022-03-17] MEDS: DOCUSATE SODIUM 100 MG CAPSULE PO SCH ×2 (08:14→21:07)
[2022-03-17] MEDS: ASPIRIN 81 MG CHEWABLE TABLET PO SCH (08:14)
[2022-03-17] MEDS: APIXABAN 2.5 MG TABLET PO SCH ×2 (08:15→21:07)
[2022-03-17] MEDS: AMIODARONE HCL 200 MG TABLET PO SCH ×2 (08:15→21:08)
[2022-03-17] MEDS: AmLODIPine BESYLATE 5 MG TABLET PO SCH ×2 (08:15→21:07)
[2022-03-17] MEDS: CARVEDILOL 25 MG TABLET PO SCH ×2 (08:15→21:16)
[2022-03-17] MEDS: 0.9% SODIUM CHLORIDE 10 ML SYRINGE IVP SCH ×2 (08:28→21:06)
[2022-03-17] MEDS: PANTOPRAZOLE SODIUM 40 MG/VIAL IVP SCH (08:28)
[2022-03-17 10:32] VITALS: BP 140/57
[2022-03-17] MEDS: LEVOFLOXACIN 750 MG/D5% WATER 150 ML IV SCH (17:08)
[2022-03-17 18:51] LABS: GLUCOMETER DEV NAME(LOC) 2WR.2B; GLUCOSE,POINT OF CARE 104 MG/DL (70-110)
[2022-03-17 21:05] VITALS: BP 133/78
[2022-03-17] MEDS: ATORVASTATIN CALCIUM 40 MG TABLET PO SCH (21:08)
[2022-03-17] MEDS: SENNA 187 MG TABLET PO SCH (21:08)
[2022-03-17] MEDS: INSULIN GLARGINE,HUM.REC.ANLOG 100 UNITS/ML SQ SCH (21:14)
[2022-03-17 21:37] LABS: GLUCOMETER DEV NAME(LOC) 2WR.1C; GLUCOSE,POINT OF CARE 277 MG/DL (70-110)
[2022-03-17 22:16] LABS: GLUCOMETER DEV NAME(LOC) 2WR.2B; GLUCOSE,POINT OF CARE 204 MG/DL (70-110)
[2022-03-18] MEDS: CLINDAMYCIN 600 MG/D5% WATER 50 ML IV SCH ×3 (06:08→21:03)
[2022-03-18 06:46] LABS: GLUCOMETER DEV NAME(LOC) 2WR.2B; GLUCOSE,POINT OF CARE 99 MG/DL (70-110)
[2022-03-18] MEDS: DOCUSATE SODIUM 100 MG/10 ML LIQUID UDCUP PO SCH ×2 (09:00→09:09)
[2022-03-18] MEDS: PANTOPRAZOLE SODIUM 40 MG/VIAL IVP SCH (09:09)
[2022-03-18] MEDS: AmLODIPine BESYLATE 5 MG TABLET PO SCH ×2 (09:10→21:00)
[2022-03-18] MEDS: AMIODARONE HCL 200 MG TABLET PO SCH ×2 (09:10→21:00)
[2022-03-18] MEDS: ASPIRIN 81 MG CHEWABLE TABLET PO SCH (09:10)
[2022-03-18] MEDS: PIOGLITAZONE HCL 30 MG TABLET PO SCH (09:10)
[2022-03-18] MEDS: GLIMEPIRIDE 2 MG TABLET PO SCH (09:10)
[2022-03-18] MEDS: CARVEDILOL 25 MG TABLET PO SCH ×2 (09:11→21:02)
[2022-03-18] MEDS: APIXABAN 2.5 MG TABLET PO SCH ×2 (09:11→21:01)
[2022-03-18] MEDS: ETHYL ALCOHOL 62% ANTISEPTIC NASAL SANITIZER 0.6 ML AMPUL NASAL SCH ×2 (09:11→20:53)
[2022-03-18] MEDS: 0.9% SODIUM CHLORIDE 10 ML SYRINGE IVP SCH ×2 (09:11→21:03)
[2022-03-18 10:39] VITALS: BP 103/75
[2022-03-18] MEDS ORDERED: SODIUM CHLORIDE 0.9% 500 ML IV ONE (11:25)
[2022-03-18] MEDS: INSULIN LISPRO 100 UNITS/ML SQ PRN ×2 (12:25→21:05)
[2022-03-18 20:21] LABS: GLUCOMETER DEV NAME(LOC) 2WR.2B; GLUCOSE,POINT OF CARE 123 MG/DL (70-110)
[2022-03-18 20:55] VITALS: BP 125/72
[2022-03-18] MEDS: MELATONIN 3 MG TABLET PO PRN (21:01)
[2022-03-18] MEDS: SENNA 187 MG TABLET PO SCH (21:01)
[2022-03-18] MEDS: ATORVASTATIN CALCIUM 40 MG TABLET PO SCH (21:01)
[2022-03-18] MEDS: INSULIN GLARGINE,HUM.REC.ANLOG 100 UNITS/ML SQ SCH (21:04)
[2022-03-18 21:40] LABS: GLUCOMETER DEV NAME(LOC) 2WR.2B; GLUCOSE,POINT OF CARE 155 MG/DL (70-110)
[2022-03-19] MEDS: CLINDAMYCIN 600 MG/D5% WATER 50 ML IV SCH ×3 (05:04→22:27)
[2022-03-19 05:36] LABS: GLUCOMETER DEV NAME(LOC) 2WR.1C; GLUCOSE,POINT OF CARE 253 MG/DL (70-110)
[2022-03-19 06:41] LABS: GLUCOMETER DEV NAME(LOC) 2WR.2B; GLUCOSE,POINT OF CARE 99 MG/DL (70-110)
[2022-03-19 08:10] VITALS: BP 133/70
[2022-03-19] MEDS: CARVEDILOL 25 MG TABLET PO SCH ×2 (08:25→21:12)
[2022-03-19] MEDS: ETHYL ALCOHOL 62% ANTISEPTIC NASAL SANITIZER 0.6 ML AMPUL NASAL SCH ×2 (08:25→22:02)
[2022-03-19] MEDS: DOCUSATE SODIUM 100 MG/10 ML LIQUID UDCUP PO SCH (08:25)
[2022-03-19] MEDS: APIXABAN 2.5 MG TABLET PO SCH ×2 (08:26→21:12)
[2022-03-19] MEDS: AMIODARONE HCL 200 MG TABLET PO SCH ×2 (08:26→21:12)
[2022-03-19] MEDS: ASPIRIN 81 MG CHEWABLE TABLET PO SCH (08:26)
[2022-03-19] MEDS: GLIMEPIRIDE 2 MG TABLET PO SCH (08:27)
[2022-03-19] MEDS: 0.9% SODIUM CHLORIDE 10 ML SYRINGE IVP SCH ×2 (08:27→21:12)
[2022-03-19] MEDS: PIOGLITAZONE HCL 30 MG TABLET PO SCH (08:27)
[2022-03-19] MEDS: PANTOPRAZOLE SODIUM 40 MG/VIAL IVP SCH (08:27)
[2022-03-19] MEDS: AmLODIPine BESYLATE 5 MG TABLET PO SCH ×2 (08:28→21:12)
[2022-03-19] MEDS: INSULIN LISPRO 100 UNITS/ML SQ PRN (12:26)
[2022-03-19 12:41] LABS: GLUCOMETER DEV NAME(LOC) 2WR.2B; GLUCOSE,POINT OF CARE 249 MG/DL (70-110)
[2022-03-19] MEDS: LEVOFLOXACIN 750 MG/D5% WATER 150 ML IV SCH (17:29)
[2022-03-19 19:21] LABS: GLUCOMETER DEV NAME(LOC) 2WR.1C; GLUCOSE,POINT OF CARE 107 MG/DL (70-110)
[2022-03-19 20:00] VITALS: BP 115/56
[2022-03-19] MEDS: ATORVASTATIN CALCIUM 40 MG TABLET PO SCH (21:12)
[2022-03-19] MEDS: SENNA 187 MG TABLET PO SCH (21:13)
[2022-03-19] MEDS: INSULIN GLARGINE,HUM.REC.ANLOG 100 UNITS/ML SQ SCH (22:05)
[2022-03-19 22:36] LABS: GLUCOMETER DEV NAME(LOC) 2WR.1C; GLUCOSE,POINT OF CARE 187 MG/DL (70-110)
[2022-03-20] MEDS ORDERED: SODIUM CHLORIDE 0.9% 250 ML IV ONE (01:36)
[2022-03-20] MEDS: CLINDAMYCIN 600 MG/D5% WATER 50 ML IV SCH ×3 (05:52→20:51)
[2022-03-20 06:41] LABS: GLUCOMETER DEV NAME(LOC) 2WR.1C; GLUCOSE,POINT OF CARE 100 MG/DL (70-110)
[2022-03-20 07:45] VITALS: BP 130/68
[2022-03-20] MEDS: 0.9% SODIUM CHLORIDE 10 ML SYRINGE IVP SCH ×2 (08:08→20:23)
[2022-03-20] MEDS: PANTOPRAZOLE SODIUM 40 MG/VIAL IVP SCH (08:08)
[2022-03-20] MEDS: GLIMEPIRIDE 2 MG TABLET PO SCH (08:08)
[2022-03-20] MEDS: ETHYL ALCOHOL 62% ANTISEPTIC NASAL SANITIZER 0.6 ML AMPUL NASAL SCH ×2 (08:08→20:23)
[2022-03-20] MEDS: PIOGLITAZONE HCL 30 MG TABLET PO SCH (08:09)
[2022-03-20] MEDS: ASPIRIN 81 MG CHEWABLE TABLET PO SCH (08:09)
[2022-03-20] MEDS: AmLODIPine BESYLATE 5 MG TABLET PO SCH ×2 (08:09→20:25)
[2022-03-20] MEDS: DOCUSATE SODIUM 100 MG/10 ML LIQUID UDCUP PO SCH (08:09)
[2022-03-20] MEDS: CARVEDILOL 25 MG TABLET PO SCH ×2 (08:09→20:25)
[2022-03-20] MEDS: APIXABAN 2.5 MG TABLET PO SCH ×2 (08:09→20:25)
[2022-03-20] MEDS: AMIODARONE HCL 200 MG TABLET PO SCH ×2 (08:09→20:26)
[2022-03-20] MEDS: INSULIN LISPRO 100 UNITS/ML SQ PRN ×2 (12:08→17:35)
[2022-03-20 12:21] LABS: GLUCOMETER DEV NAME(LOC) 2WR.1C; GLUCOSE,POINT OF CARE 156 MG/DL (70-110)
[2022-03-20] MEDS: ATORVASTATIN CALCIUM 40 MG TABLET PO SCH (20:25)
[2022-03-20] MEDS: SENNA 187 MG TABLET PO SCH (20:26)
[2022-03-20] MEDS: INSULIN GLARGINE,HUM.REC.ANLOG 100 UNITS/ML SQ SCH (20:35)
[2022-03-20 22:26] VITALS: BP 128/63
[2022-03-20 22:37] LABS: GLUCOMETER DEV NAME(LOC) 2WR.1C; GLUCOSE,POINT OF CARE 140 MG/DL (70-110)
[2022-03-20 22:37] LABS: GLUCOMETER DEV NAME(LOC) 2WR.1C; GLUCOSE,POINT OF CARE 170 MG/DL (70-110)
[2022-03-21] MEDS: CLINDAMYCIN 600 MG/D5% WATER 50 ML IV SCH ×3 (05:09→21:27)
[2022-03-21 07:07] LABS: GLUCOMETER DEV NAME(LOC) 2WR.1C; GLUCOSE,POINT OF CARE 97 MG/DL (70-110)
[2022-03-21 08:00] VITALS: BP 113/61
[2022-03-21] MEDS: DOCUSATE SODIUM 100 MG/10 ML LIQUID UDCUP PO SCH (08:03)
[2022-03-21] MEDS: APIXABAN 2.5 MG TABLET PO SCH ×2 (08:04→20:50)
[2022-03-21] MEDS: GLIMEPIRIDE 2 MG TABLET PO SCH (08:04)
[2022-03-21] MEDS: AMIODARONE HCL 200 MG TABLET PO SCH ×2 (08:04→20:50)
[2022-03-21] MEDS: ASPIRIN 81 MG CHEWABLE TABLET PO SCH (08:04)
[2022-03-21] MEDS: CARVEDILOL 25 MG TABLET PO SCH ×2 (08:04→21:14)
[2022-03-21] MEDS: PIOGLITAZONE HCL 30 MG TABLET PO SCH (08:04)
[2022-03-21] MEDS: AmLODIPine BESYLATE 5 MG TABLET PO SCH ×2 (08:05→20:50)
[2022-03-21] MEDS: ETHYL ALCOHOL 62% ANTISEPTIC NASAL SANITIZER 0.6 ML AMPUL NASAL SCH ×2 (08:05→20:40)
[2022-03-21] MEDS: PANTOPRAZOLE SODIUM 40 MG/VIAL IVP SCH (08:05)
[2022-03-21] MEDS: 0.9% SODIUM CHLORIDE 10 ML SYRINGE IVP SCH ×2 (08:06→20:54)
[2022-03-21] MEDS: INSULIN LISPRO 100 UNITS/ML SQ PRN (12:14)
[2022-03-21] MEDS: LEVOFLOXACIN 750 MG/D5% WATER 150 ML IV SCH (16:26)
[2022-03-21 16:56] LABS: GLUCOMETER DEV NAME(LOC) 2WR.1C; GLUCOSE,POINT OF CARE 208 MG/DL (70-110)
[2022-03-21 17:16] LABS: GLUCOMETER DEV NAME(LOC) 2WR.2B; GLUCOSE,POINT OF CARE 132 MG/DL (70-110)
[2022-03-21 20:00] VITALS: BP 130/80
[2022-03-21] MEDS: SENNA 187 MG TABLET PO SCH (20:41)
[2022-03-21] MEDS: ATORVASTATIN CALCIUM 40 MG TABLET PO SCH (20:50)
[2022-03-21] MEDS: INSULIN GLARGINE,HUM.REC.ANLOG 100 UNITS/ML SQ SCH (20:57)
[2022-03-21 21:06] LABS: GLUCOMETER DEV NAME(LOC) 2WR.1C; GLUCOSE,POINT OF CARE 82 MG/DL (70-110)
[2022-03-22] MEDS: MELATONIN 3 MG TABLET PO PRN (00:42)
[2022-03-22 02:30] VITALS: BP 137/83
[2022-03-22 03:26] LABS: GLUCOMETER DEV NAME(LOC) 2WR.1C; GLUCOSE,POINT OF CARE 112 MG/DL (70-110)
[2022-03-22] MEDS: CLINDAMYCIN 600 MG/D5% WATER 50 ML IV SCH ×3 (05:42→21:59)
[2022-03-22 06:26] LABS: BASOPHILS % (AUTO) 0.5 % (0.0-2.0); EOSINOPHILS % (AUTO) 1.7 % (1.0-6.0); HEMATOCRIT 45.7 % (41-53); HEMOGLOBIN 15.1 g/dL (13.5-17.5); LYMPHOCYTES # (AUTO) 1.3 K/uL (1.0-4.8); LYMPHOCYTES % (AUTO) 8.9 % (22.0-44.0); MEAN CORPUSCULAR HEMOGLOBIN 30.2 pg (26.0-34.0); MEAN CORPUSCULAR HGB CONC 33.1 G/dL (31.0-37.0); MEAN CORPUSCULAR VOLUME 91 fL (80-100); MONOCYTES # (AUTO) 0.8 K/uL (0.1-1.0); MONOCYTES % (AUTO) 5.7 % (2.0-9.0); NEUTROPHILS # (AUTO) 11.8 K/uL (1.8-7.7); NEUTROPHILS % (AUTO) 83.2 % (40.0-70.0); PLATELET COUNT (AUTO) 373 K/uL (150-450); RED CELL DISTRIBUTION WIDTH 13.6 % (11.5-14.5)
[2022-03-22 06:42] LABS: ALBUMIN 2.6 g/dL (3.4-5.0); BILIRUBIN,TOTAL 0.7 mg/dL (0.1-1.0); CALCIUM, TOTAL 8.7 mg/dL (8.8-10.5); CREATININE 1.33 mg/dL (0.60-1.30); POTASSIUM 3.8 mmol/L (3.5-5.1); TOTAL PROTEIN, SERUM 7.1 g/dL (6.4-8.2)
[2022-03-22 07:01] LABS: GLUCOMETER DEV NAME(LOC) 2WR.1C; GLUCOSE,POINT OF CARE 91 MG/DL (70-110)
[2022-03-22 08:00] VITALS: BP 144/73
[2022-03-22] MEDS: 0.9% SODIUM CHLORIDE 10 ML SYRINGE IVP SCH ×2 (08:45→21:00)
[2022-03-22] MEDS: GLIMEPIRIDE 2 MG TABLET PO SCH (08:45)
[2022-03-22] MEDS: PIOGLITAZONE HCL 30 MG TABLET PO SCH (08:46)
[2022-03-22] MEDS: APIXABAN 2.5 MG TABLET PO SCH ×2 (08:46→21:00)
[2022-03-22] MEDS: ASPIRIN 81 MG CHEWABLE TABLET PO SCH (08:46)
[2022-03-22] MEDS: CARVEDILOL 25 MG TABLET PO SCH ×2 (08:46→21:00)
[2022-03-22] MEDS: PANTOPRAZOLE SODIUM 40 MG/VIAL IVP SCH (08:46)
[2022-03-22] MEDS: ETHYL ALCOHOL 62% ANTISEPTIC NASAL SANITIZER 0.6 ML AMPUL NASAL SCH ×2 (08:46→21:45)
[2022-03-22] MEDS: DOCUSATE SODIUM 100 MG/10 ML LIQUID UDCUP PO SCH (08:46)
[2022-03-22] MEDS: AmLODIPine BESYLATE 5 MG TABLET PO SCH ×2 (08:47→21:00)
[2022-03-22] MEDS: AMIODARONE HCL 200 MG TABLET PO SCH ×2 (08:47→21:00)
[2022-03-22 10:11] LABS: APPEARANCE,URINE CLEAR (CLEAR); BILIRUBIN,URINE NEGATIVE (NEGATIVE); GLUCOSE, URINE (UA) 300-500 mg/dL (NEGATIVE); KETONES,URINE NEGATIVE (NEGATIVE); LEUKOCYTE ESTERASE ,URINE NEGATIVE (NEGATIVE); NITRATE,URINE NEGATIVE (NEGATIVE); OCCULT BLOOD,URINE NEGATIVE (NEGATIVE); PH,URINE 7.5 (5.0-8.0); PROTEIN,URINE TRACE mg/dL (NEGATIVE); SPECIFIC GRAVITIY, URINE 1.016 (1.003-1.030); UROBILINOGEN,URINE <=1.0 mg/dL (<=1.0)
[2022-03-22 10:56] LABS: RBC,URINE 0-2 /HPF (0-2); WBC,URINE 0-2 /HPF (0-5)
[2022-03-22 10:57] LABS: BACTERIA,URINE Rare /HPF (None Seen); SQUAMOUS EPITHELIAL CELL,UR Rare /LPF (None Seen)
[2022-03-22 13:00] LABS: GLUCOMETER DEV NAME(LOC) 2WR.1C; GLUCOSE,POINT OF CARE 196 MG/DL (70-110)
[2022-03-22 13:13] VITALS: BP 111/64
[2022-03-22] MEDS: INSULIN LISPRO 100 UNITS/ML SQ PRN (13:49)
[2022-03-22] MEDS: DEXTROSE 5%-0.9% SODIUM CHL 1,000 ML IV SCH (16:03)
[2022-03-22 17:11] LABS: GLUCOMETER DEV NAME(LOC) 2WR.1C; GLUCOSE,POINT OF CARE 113 MG/DL (70-110)
[2022-03-22 20:20] VITALS: BP 115/63
[2022-03-22] MEDS: SENNA 187 MG TABLET PO SCH (21:00)
[2022-03-22] MEDS: ATORVASTATIN CALCIUM 40 MG TABLET PO SCH (21:00)
[2022-03-22] MEDS: INSULIN GLARGINE,HUM.REC.ANLOG 100 UNITS/ML SQ SCH (21:00)
[2022-03-22 23:01] LABS: GLUCOMETER DEV NAME(LOC) 2WR.1C; GLUCOSE,POINT OF CARE 111 MG/DL (70-110)
[2022-03-23 07:01] LABS: GLUCOMETER DEV NAME(LOC) 2WR.2B; GLUCOSE,POINT OF CARE 119 MG/DL (70-110)
[2022-03-23] MEDS: GLIMEPIRIDE 2 MG TABLET PO SCH (07:30)
[2022-03-23 08:05] VITALS: BP 112/72
[2022-03-23] MEDS: 0.9% SODIUM CHLORIDE 10 ML SYRINGE IVP SCH (08:32)
[2022-03-23] MEDS: PANTOPRAZOLE SODIUM 40 MG/VIAL IVP SCH (08:32)
[2022-03-23] MEDS: DEXTROSE 5%-0.9% SODIUM CHL 1,000 ML IV SCH (08:44)
[2022-03-23] MEDS: ETHYL ALCOHOL 62% ANTISEPTIC NASAL SANITIZER 0.6 ML AMPUL NASAL SCH (08:45)
[2022-03-23] MEDS: PIOGLITAZONE HCL 30 MG TABLET PO SCH (08:45)
[2022-03-23] MEDS: CARVEDILOL 25 MG TABLET PO SCH (09:00)
[2022-03-23] MEDS: APIXABAN 2.5 MG TABLET PO SCH (09:00)
[2022-03-23] MEDS: DOCUSATE SODIUM 100 MG/10 ML LIQUID UDCUP PO SCH (09:00)
[2022-03-23] MEDS: ASPIRIN 81 MG CHEWABLE TABLET PO SCH (09:00)
[2022-03-23] MEDS: AmLODIPine BESYLATE 5 MG TABLET PO SCH (09:00)
[2022-03-23] MEDS: AMIODARONE HCL 200 MG TABLET PO SCH (09:00)
[2022-03-23 11:11] LABS: BASOPHILS % (AUTO) 0.4 % (0.0-2.0); EOSINOPHILS % (AUTO) 0.7 % (1.0-6.0); HEMATOCRIT 44.6 % (41-53); HEMOGLOBIN 14.4 g/dL (13.5-17.5); LYMPHOCYTES % (AUTO) 4.1 % (22.0-44.0); MEAN CORPUSCULAR HEMOGLOBIN 29.5 pg (26.0-34.0); MEAN CORPUSCULAR HGB CONC 32.3 G/dL (31.0-37.0); MEAN CORPUSCULAR VOLUME 91 fL (80-100); MONOCYTES # (AUTO) 1.3 K/uL (0.1-1.0); MONOCYTES % (AUTO) 5.3 % (2.0-9.0); NEUTROPHILS # (AUTO) 21.4 K/uL (1.8-7.7); PLATELET COUNT (AUTO) 359 K/uL (150-450); RED BLOOD CELL COUNT(AUTO) 4.89 MIL/uL (4.50-5.90); RED CELL DISTRIBUTION WIDTH 13.7 % (11.5-14.5)
[2022-03-23 11:14] LABS: NEUTROPHILS % (AUTO) 89.5 % (40.0-70.0)
[2022-03-23 11:23] LABS: CALCIUM, TOTAL 8.3 mg/dL (8.8-10.5); CREATININE 1.29 mg/dL (0.60-1.30); POTASSIUM 4.4 mmol/L (3.5-5.1)
[2022-03-23] MEDS ORDERED: ASPI-1450 NG (17:29)
[2022-03-23] MEDS ORDERED: APIX2.5T NG (17:29)
[2022-03-23] MEDS ORDERED: BISA10SU11 PR (17:29)
[2022-03-23] MEDS ORDERED: ONDA4VIA60 IVP (17:29)
[2022-03-23] MEDS ORDERED: ACET-2247 NG (17:29)
[2022-03-23] MEDS ORDERED: AMLO-257 NG (17:29)
[2022-03-23] MEDS ORDERED: PANT40VI14 IVP (17:29)
[2022-03-23] MEDS ORDERED: MAGN-169 PO (17:29)
[2022-03-23] MEDS ORDERED: CARV25 NG (17:29)
[2022-03-23] MEDS ORDERED: SENN8.6T90 NG (17:29)
[2022-03-23] MEDS ORDERED: ETHY1MED2 NASAL (17:29)
== END 2022-03-23 11:20 | DRG 56 ==
LOC: 2WR 17:30
PROVIDERS: ADMIT Physical Medicine & Rehabilitation; ATTEND Physical Medicine & Rehabilitation
DX: G81.94 Hemiplegia, unspecified affecting left nondominant side (principal); I63.9 Cerebral infarction, unspecified; J69.0 Pneumonitis due to inhalation of food and vomit; I48.20 Chronic atrial fibrillation, unspecified; E46 Unspecified protein-calorie malnutrition; G93.40 Encephalopathy, unspecified; R13.12 Dysphagia, oropharyngeal phase; I25.10 Atherosclerotic heart disease of native coronary artery without angina pectoris; I48.0 Paroxysmal atrial fibrillation; F01.50 Vascular dementia, unspecified severity, without behavioral disturbance, psychotic disturbance, mood disturbance, and anxiety; E78.5 Hyperlipidemia, unspecified; E11.9 Type 2 diabetes mellitus without complications; I10 Essential (primary) hypertension; K59.00 Constipation, unspecified; G47.00 Insomnia, unspecified; Z68.23 Body mass index [BMI] 23.0-23.9, adult; Z95.5 Presence of coronary angioplasty implant and graft; Z82.49 Family history of ischemic heart disease and other diseases of the circulatory system; Z79.01 Long term (current) use of anticoagulants; Z59.02 Unsheltered homelessness; Z79.4 Long term (current) use of insulin
CPT/HCPCS: 70450; 71046; 74018; 80048; 80053; 81001; 82962; 83036; 85025; 87081; 92507; 92526; 92610; 93970; 97112; 97116; 97163; 97167; 97530; 97535; 99366; C9113; J1815; J1956; J3490; J7040; J7042; J7050; 36415-L1; 36415-TC